=== PATIENT | female | born 1980 ===

== ENCOUNTER 2018-02-28 14:00 | Inpatient (IN) | payer OTHER ==
[~2018-02-28] VITALS: Ht 162.6 cm; Wt 72.1 kg
[2018-03-13] MEDS ORDERED: PRENATAL 19 TA1 EAC1 PO (22:55)
[2018-03-13] MEDS ORDERED: VITAMIN D2000 UNIT PO (22:57)
[2018-03-13] MEDS ORDERED: FERRACTIV IRON1 EACH PO (23:02)
[2018-03-13] MEDS ORDERED: FERRLECIT62.5 MG/2 IV (23:03)
== END 2018-03-16 11:42 | disposition home or self-care (01) | DRG 775 ==
LOC: LDR 03-13 22:15 → OB/GYN 03-14 00:58
PROC: 0HQ9XZZ Repair Perineum Skin, External Approach (ICD-10-PCS; principal; 2018-03-13)
PROC: 10E0XZZ Delivery of Products of Conception, External Approach (ICD-10-PCS; 2018-03-13)
PROC: 4A1HXCZ Monitoring of Products of Conception, Cardiac Rate, External Approach (ICD-10-PCS; 2018-03-13)
DX: O70.0 First degree perineal laceration during delivery (principal); Z3A.38 38 weeks gestation of pregnancy; Z37.0 Single live birth